=== PATIENT | female | born 1980 | race Hispanic/Latino ===

== ENCOUNTER 2021-06-18 21:39 | Inpatient (IN) | payer MEDICAID, OTHER, SELFPAY ==
[2021-06-18] MEDS ORDERED: Ondansetron PF 4 MG/2 ML Vial IVP PRN (22:23)
[2021-06-18] MEDS ORDERED: hydrALAZINE 20 MG/ML VIAL SLOW IVP PRN (22:23)
[2021-06-18] MEDS ORDERED: Promethazine HCl 25 MG/ML VIAL IM PRN (22:23)
[2021-06-18] MEDS ORDERED: Dextrose 50% Abboject 50 ML SYRINGE SLOW IVP PRN (22:57)
[2021-06-18] MEDS ORDERED: Dextrose 5% in Water 1,000 ML IV PRN (22:57)
[2021-06-18] MEDS ORDERED: HumaLOG 300 UNITS/3 ML VIAL SC PRN ×2 (22:57)
[2021-06-18 23:22] VITALS: BMI 43.5
[2021-06-18 23:49] LABS: ALT (SGPT) 6 U/L (8-55); AST (SGOT) 26 U/L (5-34); Albumin 3.1 g/dL (3.5-5.0); Alkaline Phosphatase 67 U/L (40-110); Anion Gap 15 mmol/L (10-20); BUN (Urea Nitrogen) 8 mg/dL (7.0-18.7); Bilirubin, Total 0.2 mg/dL (0.2-1.2); Calc. Creatinine Clearance 232 mL/min (70-130); Calcium 9.6 mg/dL (7.8-10.44); Carbon Dioxide 19 mmol/L (22-29); Chloride 103 mmol/L (98-107); Globulin 3.4 g/dL (2.4-3.5); Glucose 136 mg/dL (70-105); Hemoglobin 10.6 g/dL (12.0-15.5); Mean Corpuscular Hemoglobin 28.4 pg (27.0-33.0); Mean Corpuscular Volume 86.1 fl (81.6-98.3); Mean Platelet Volume 11.1 fl (7.4-10.4); Platelet Count 203 10x3/uL (150-450); Potassium 3.7 mmol/L (3.5-5.1); Protein, Total 6.5 g/dL (6.0-8.3); RBC Distribution Width 12.9 % (11.5-14.5); Red Blood Cell (RBC) Count 3.73 10x6/uL (3.90-5.03); Sodium 133 mmol/L (136-145); White Blood Cell (WBC) Count 9.9 10x3/uL (3.5-10.5)
[2021-06-19 00:08] LABS: Syphilis Antibody Nonreactive (Nonreactive); Syphilis Antibody Index 0.02 S/CO (<1.00 Non-Reactive)
[2021-06-19 00:09] LABS: Hep B Surf Ag Non-Reactive S/CO (NonReactive)
[2021-06-19 00:12] LABS: SARS-CoV-2 NAA Rapid Test Not Detected (NotDetected)
[2021-06-19 00:14] LABS: HBSAg Index 0.21 S/CO (0-0.99)
[2021-06-19] MEDS: Acetaminophen 500 MG TAB PO PRN ×2 (00:26→19:36)
[2021-06-19 05:23] LABS: ALT (SGPT) 9 U/L (8-55); AST (SGOT) 31 U/L (5-34); Albumin 2.9 g/dL (3.5-5.0); Alkaline Phosphatase 66 U/L (40-110); Anion Gap 15 mmol/L (10-20); BUN (Urea Nitrogen) 7 mg/dL (7.0-18.7); Bilirubin, Total 0.3 mg/dL (0.2-1.2); Calc. Creatinine Clearance 236 mL/min (70-130); Calcium 8.9 mg/dL (7.8-10.44); Carbon Dioxide 17 mmol/L (22-29); Chloride 106 mmol/L (98-107); Globulin 3.4 g/dL (2.4-3.5); Glucose 113 mg/dL (70-105); Potassium 3.9 mmol/L (3.5-5.1); Protein, Total 6.3 g/dL (6.0-8.3); Sodium 134 mmol/L (136-145)
[2021-06-19] MEDS: metFORMIN 500 MG TAB PO SCH ×2 (08:42→17:12)
[2021-06-19] MEDS: Aspirin 81 mg Enteric Coated Tablet PO SCH (08:42)
[2021-06-19] MEDS: HumaLOG 300 UNITS/3 ML VIAL SC SCH (09:05)
[2021-06-19] MEDS: Lantus 1000 UNITS/10 ML VIAL SC SCH ×2 (09:06→20:46)
[2021-06-19] MEDS: HumaLOG 300 UNITS/3 ML VIAL SC PRN ×2 (10:43→21:03)
[2021-06-19] MEDS ORDERED: HumaLOG 300 UNITS/3 ML VIAL SC SCH ×2 (12:00→17:00)
[2021-06-19] MEDS ORDERED: Lantus 1000 UNITS/10 ML VIAL SC SCH (21:00)
[2021-06-20] MEDS: Lantus 1000 UNITS/10 ML VIAL SC SCH ×2 (09:24→21:07)
[2021-06-20] MEDS: HumaLOG 300 UNITS/3 ML VIAL SC SCH (09:25)
[2021-06-20] MEDS: metFORMIN 500 MG TAB PO SCH ×2 (09:25→17:19)
[2021-06-20] MEDS: Aspirin 81 mg Enteric Coated Tablet PO SCH (09:25)
[2021-06-20] MEDS: HumaLOG 300 UNITS/3 ML VIAL SC PRN ×2 (10:59→14:53)
[2021-06-20] MEDS ORDERED: HumaLOG 300 UNITS/3 ML VIAL SC SCH ×2 (12:00→17:00)
[2021-06-21] MEDS ORDERED: HumaLOG 300 UNITS/3 ML VIAL SC SCH ×2 (08:00→12:00)
[2021-06-21] MEDS ORDERED: Acetaminophen 325 MG TAB PO SCH (08:00)
[2021-06-21] MEDS: metFORMIN 500 MG TAB PO SCH (08:55)
[2021-06-21] MEDS: Aspirin 81 mg Enteric Coated Tablet PO SCH (08:55)
[2021-06-21] MEDS: Lantus 1000 UNITS/10 ML VIAL SC SCH (08:56)
[2021-06-21 11:56] VITALS: BP 121/74; TEMP 97.8
== END 2021-06-21 15:12 | disposition home or self-care (01) | DRG 832 ==
LOC: CSHLD/OP 21:39 → INTOOBSV 22:38 → OBSVTOIN 22:38 → CSHANTE 22:38
PROVIDERS: ADMIT Emergency Medicine; ATTEND Emergency Medicine
DX: O24.113 Pre-existing type 2 diabetes mellitus, in pregnancy, third trimester (principal); O10.913 Unspecified pre-existing hypertension complicating pregnancy, third trimester; E11.9 Type 2 diabetes mellitus without complications; Z3A.34 34 weeks gestation of pregnancy; Z20.822 Contact with and (suspected) exposure to COVID-19; O99.891 Other specified diseases and conditions complicating pregnancy; M79.89 Other specified soft tissue disorders; M79.605 Pain in left leg; M79.604 Pain in right leg
CPT/HCPCS: 36415; 36416; 80053; 85027; 86780; 86850; 86900; 86901; 87081; 87340; J1815; U0002